=== PATIENT | female | born 1985 | race Caucasian/White ===

== ENCOUNTER 2017-06-22 02:18 | Emergency (ER) | payer SELFPAY ==
[2017-06-22 02:50] VITALS: RESP 16
[2017-06-22] MEDS ORDERED: Sodium Chloride 0.9% 1,000 ML IV STA (02:54)
--- NOTE | 2017-06-22 02:56 | ED PDOC ---
Arrival/HPI - General Time Seen by Provider: 06/22/17 02:46 Historian: Patient - History of Present Illness Narrative History of Present Illness (Text): 06/22/17 02:52 A 31 year old female presents to the emergency department complaining of nausea , vomiting and diarrhea since yesterday afternoon. Patient also reports flu like symptoms for 1 week. She notes subjective fevers, generalized body aches and sore throat. Patient denies any chest pain, shortness of breath, or any other complaints. Time/Duration: 1 week (flu like symptoms), Other (n/v/d x yesterday afternoon) Symptom Course: Unchanged Context: Home Past Medical History - Provider Review Nursing Documentation Reviewed: Yes Family/Social History - Physician Review Nursing Documentation Reviewed: Yes Family/Social History: No Known Family HX Allergies/Home Meds Allergies/Adverse Reactions: Allergies Penicillins Allergy (Verified 06/22/17 02:54) RASH Home Medications: Home Meds Medication Instructions Recorded Confirmed Ethinyl Estradiol/Drospirenone 1 tab PO DAILY 06/22/17 06/22/17 [Nadia 28 Tablet] Review of Systems - Physician Review All systems were reviewed & negative as marked: Yes - Review of Systems Constitutional: Fevers ENT: Sore Throat Respiratory: absent: SOB Cardiovascular: absent: Chest Pain Gastrointestinal: Diarrhea, Nausea, Vomiting Musculoskeletal: Myalgias Physical Exam Vital Signs Reviewed: Yes Vital Signs Temp Pulse Resp BP Pulse Ox 06/22/17 02:49 98.0 F 69 16 119/75 100 Temperature: Afebrile Blood Pressure: Normal Pulse: Regular Respiratory Rate: Normal Appearance: Positive for: Well-Appearing, Non-Toxic, Comfortable Pain Distress: None Mental Status: Positive for: Alert and Oriented X 3 - Systems Exam Head: Present: Atraumatic, Normocephalic Pupils: Present: PERRL Extroacular Muscles: Present: EOMI Conjunctiva: Present: Normal Mouth: Present: Moist Mucous Membranes Neck: Present: Normal Range of Motion Respiratory/Chest: Present: Clear to Auscultation, Good Air Exchange. No: Respiratory Distress, Accessory Muscle Use Cardiovascular: Present: Regular Rate and Rhythm, Normal S1, S2. No: Murmurs Abdomen: Present: Normal Bowel Sounds. No: Tenderness, Distention, Peritoneal Signs Back: Present: Normal Inspection Upper Extremity: Present: Normal Inspection. No: Cyanosis, Edema Lower Extremity: Present: Normal Inspection. No: Edema Neurological: Present: GCS=15, CN II-XII Intact, Speech Normal Skin: Present: Warm, Dry, Normal Color. No: Rashes Psychiatric: Present: Alert, Oriented x 3, Normal Insight, Normal Concentration Medical Decision Making ED Course and Treatment: 06/22/17 02:52 Impression: A 31 year old female with nausea, vomiting and diarrhea. Patient notes flu-like symptoms for 1 week. Plan: -- Labs -- Rapid flu -- Pepcid, Zofran and IV fluids -- Reassess and disposition Progress Notes: - Lab Interpretations Lab Results: 06/22/17 03:22 06/22/17 03:22 Lab Results 06/22/17 03:22: Influenza Typ A,B (EIA) Negative for flu a/b 06/22/17 03:22: WBC 3.6 L, RBC 4.29, Hgb 12.8, Hct 38.7, MCV 90.2, MCH 29.8, MCHC 33.1, RDW 13.2, Plt Count 144, MPV 10.5 06/22/17 03:22: Sodium 140, Potassium 4.2, Chloride 105, Carbon Dioxide 25, Anion Gap 15, BUN 11, Creatinine 0.8, Est GFR ( Amer) > 60, Est GFR (Non- Af Amer) > 60, Random Glucose 103, Calcium 9.5, Total Bilirubin 0.3, AST 28, ALT 30, Alkaline Phosphatase 51, Total Protein 9.4 H, Albumin 3.8, Globulin 5.7 , Albumin/Globulin Ratio 0.7 L I have reviewed the lab results: Yes - Medication Orders Current Medication Orders: Discontinued Medications Famotidine (Pepcid) 20 mg IVP STAT STA Stop: 06/22/17 02:55 Last Admin: 06/22/17 03:24 Dose: 20 mg IVP Administration Document 06/22/17 03:24 MS (Rec: 06/22/17 03:24 MS [facility] [id number]) Charges for Administration # of IVP Administrations 1 Sodium Chloride (Sodium Chloride 0.9%) 1,000 mls @ 999 mls/hr IV .Q1H1M STA Stop: 06/22/17 03:54 Last Admin: 06/22/17 03:23 Dose: 999 mls/hr eMAR Start Stop Document 06/22/17 03:23 MS (Rec: 06/22/17 03:24 MS [facility] [id number]) Intravenous Solution Start Date 06/22/17 Start Time 03:23 End Date 06/22/17 End time 03:53 Total Infusion Time 30 Ondansetron HCl (Zofran Inj) 4 mg IVP ONCE ONE Stop: 06/22/17 02:55 Last Admin: 06/22/17 03:24 Dose: 4 mg IVP Administration Document 06/22/17 03:24 MS (Rec: 06/22/17 03:24 MS [facility] [id number]) Charges for Administration # of IVP Administrations 1 - Scribe Statement The provider has reviewed the documentation as recorded by the Raimundoibellie Guevara Provider Scribe Attestation: All medical record entries made by the Scribe were at my direction and personally dictated by me. I have reviewed the chart and agree that the record accurately reflects my personal performance of the history, physical exam, medical decision making, and the department course for this patient. I have also personally directed, reviewed, and agree with the discharge instructions and disposition. Disposition/Present on Arrival - Present on Arrival Any Indicators Present on Arrival: No - Disposition Have Diagnosis and Disposition been Completed?: Yes Diagnosis: Gastroenteritis Disposition: HOME/ ROUTINE Disposition Time: 05:12 Patient Plan: Discharge Condition: GOOD Discharge Instructions (ExitCare): Gastroenteritis (ED) Additional Instructions: Drink small amounts of liquids at a time/take meds as prescribed/advance diet slowly as tolerated/follow up with your doctor this week Prescriptions: Ondansetron [Zofran Odt] 4 mg PO Q6 PRN #12 odt PRN Reason: Nausea/Vomiting
[2017-06-22 03:41] LABS: HEMOGLOBIN 12.8 g/dL (12.0-16.0); MEAN CELL VOLUME 90.2 fl (80.0-105.0); MEAN CORPUSCULAR HEMOGLOBIN 29.8 pg (25.0-35.0); MEAN CORPUSCULAR HGB CONC 33.1 g/dl (31.0-37.0); MEAN PLATELET VOLUME 10.5 fl (7.0-11.0); RBC 4.29 10^6/uL (3.5-6.1); RED CELL DISTRIBUTION WIDTH 13.2 % (11.5-14.5); WHITE BLOOD COUNT 3.6 10^3/ul (4.5-11.0)
[2017-06-22 03:55] LABS: ALB/GLOB RATIO 0.7 (1.1-1.8); ALBUMIN 3.8 g/dL (3.0-4.8); ALT/SGPT 30 U/L (7-56); AST/SGOT 28 U/L (14-36); BLOOD UREA NITROGEN 11 mg/dL (7-21); CALCIUM 9.5 mg/dL (8.4-10.5); GFR AFRICAN-AMERICAN > 60; GFR NON-AFRICAN AMERICAN > 60
[2017-06-22 05:51] VITALS: BP 121/76; PULSE 72; TEMP 98; O2SAT 99
== END 2017-06-22 05:51 | disposition home or self-care (01) ==
LOC: ED 02:18
DX: K52.9 Noninfective gastroenteritis and colitis, unspecified (principal)
CPT/HCPCS: 80053; 85027; 87804; 96374; 96375; 99284; J2405; J7040